=== PATIENT | female | born 1975 | race Caucasian/White ===

== ENCOUNTER 2022-01-16 10:54 | Outpatient (CLI) | payer BC, SELFPAY ==
[2022-01-16 21:47] LABS: Albumin* 4.7 g/dL (3.3-5.0); Chloride* 102 mmol/L (96-114)
[2022-01-16 21:48] LABS: Potassium* 4.3 mmol/L (3.6-5.1); Sodium* 137 mmol/L (135-149)
[2022-01-16 21:50] LABS: Alkaline Phosphatase* 64 U/L (40-150); Aspartate Amino Transferase* 28 U/L (12-35); Bilirubin Total* 0.5 mg/dL (0.1-1.5); Blood Urea Nitrogen* 13 mg/dL (5-24); Carbon Dioxide* 25 mmol/L (20-32); Cholesterol* 185 mg/dL (90-199); Creatinine* 0.6 mg/dL (0.5-1.5); Estimated Glomerular Filt Rate 112 ml/min; Glucose* 94 mg/dL (60-115); Total Protein* 7.4 g/dL (6.0-8.3)
[2022-01-16 21:51] LABS: Alanine Aminotransferase* 19 U/L (4-35); Calcium* 9.7 mg/dL (8.4-10.6); HDL Cholesterol* 66 mg/dL (>=50); LDL Cholesterol Calculated 99 mg/dL (<100); Triglycerides* 99 mg/dL (40-149)
== END 2022-01-16 10:55 | disposition home or self-care (01) ==
PROVIDERS: PCP Physician Assistant Medical; Visit Provider Physician Assistant Medical
DX: Z01.419 Encounter for gynecological examination (general) (routine) without abnormal findings (principal); G43.909 Migraine, unspecified, not intractable, without status migrainosus; Z13.6 Encounter for screening for cardiovascular disorders; Z13.29 Encounter for screening for other suspected endocrine disorder
CPT/HCPCS: 80053; 80061; 84443

== ENCOUNTER 2022-02-06 11:05 | Outpatient (CLI) | payer BC, SELFPAY ==
--- NOTE | 2022-02-06 12:10 | W.ANESCHARGE ---
Anesthesia Charges Start Date/Time Anesthesia Start Date: 02/06/22 Anesthesia Start Time: 11:40 Stop Date/Time Anesthesia Stop Date: 02/06/22 Anesthesia Stop Time: 12:05 Summary Emergency: No
== END 2022-02-06 11:06 | disposition home or self-care (01) ==
LOC: OP CLINIC 11:07
PROVIDERS: PCP Physician Assistant Medical; Visit Provider Internal Medicine
DX: Z12.11 Encounter for screening for malignant neoplasm of colon (principal)
CPT/HCPCS: 00812; 45378; J2704

== ENCOUNTER 2022-03-25 09:18 | Outpatient (CLI) | payer BC, SELFPAY ==
--- NOTE | 2022-03-25 09:15 | CRLHL7_ITS ---
For Patients: As a result of the Century Cures Act, medical imaging exams and procedure reports are released immediately into your electronic medical record. You may view this report before your referring provider. If you have questions, please contact your health care provider. BILATERAL SCREENING MAMMOGRAM WITH COMPUTER-AIDED DETECTION AND TOMOSYNTHESIS TECHNIQUE: CC and MLO views were obtained. These mammographic images have been obtained using full-field digital technique. These mammographic images were interpreted with the benefit of computer-aided detection. Breast Tomosynthesis was used in this interpretation. COMPARISON FILM: 09/26/20, 12/11/16. FINDINGS: The breasts are heterogeneously dense, which may obscure small masses IMPRESSION: There is no radiographic evidence for malignancy. ASSESSMENT: BI-RADS Category 1: Negative RECOMMENDATION: Routine screening mammogram in 1 year. A lay language report of this examination will be provided to the patient. Harry Canales M.D. Diagnostic Radiologist [email or web address] Transcribed: 4:03 pm DW/Dictated by: Harry Canales MD @ 03/25/2022 12:11:00 PM (Electronically Signed)
== END 2022-03-25 09:19 | disposition home or self-care (01) ==
LOC: MAMMO 09:19
PROVIDERS: PCP Physician Assistant Medical; Visit Provider Physician Assistant Medical
DX: Z12.31 Encounter for screening mammogram for malignant neoplasm of breast (principal); R92.2 Inconclusive mammogram
CPT/HCPCS: 77063; 77067

== ENCOUNTER 2022-12-30 10:32 | Outpatient (CLI) | payer BC, SELFPAY | END 2022-12-30 10:33 | disposition home or self-care (01) | PROVIDERS: PCP Physician Assistant Medical; Visit Provider Physician Assistant Medical | DX: Z00.00 Encounter for general adult medical examination without abnormal findings (principal); G43.909 Migraine, unspecified, not intractable, without status migrainosus; Z13.6 Encounter for screening for cardiovascular disorders; Z13.29 Encounter for screening for other suspected endocrine disorder | CPT/HCPCS: 80053; 80061; 84443 ==

== ENCOUNTER 2023-01-11 14:14 | Outpatient (CLI) | payer BC, SELFPAY ==
--- NOTE | 2023-01-11 14:00 | CRLHL7_ITS ---
For Patients: As a result of the Century Cures Act, medical imaging exams and procedure reports are released immediately into your electronic medical record. You may view this report before your referring provider. If you have questions, please contact your health care provider. BILATERAL SCREENING MAMMOGRAM WITH COMPUTER-AIDED DETECTION AND TOMOSYNTHESIS TECHNIQUE: CC and MLO views were obtained. These mammographic images have been obtained using full-field digital technique. These mammographic images were interpreted with the benefit of computer-aided detection. Breast Tomosynthesis was used in this interpretation. COMPARISON FILM: 03/25/22, 09/26/20. FINDINGS: The breasts are extremely dense, which lowers the sensitivity of mammography IMPRESSION: There is no radiographic evidence for malignancy. ASSESSMENT: BI-RADS Category 1: Negative RECOMMENDATION: Routine screening mammogram in 1 year. A lay language report of this examination will be provided to the patient. Harry Canales M.D. Diagnostic Radiologist [email or web address] MEHUL/Dictated by: Harry Canales MD @ 01/12/2023 12:15:00 PM (Electronically Signed)
--- OUTSIDE RECORDS SUMMARY | 2023-01-11 14:17 | XMS_ITS | Patient Health Record ---
Author Name Unknown Organization [facility] Address [address] [place] [id number] Care Team Providers Care Ophthalmic Medical Technologist Name Role Phone None, No PCP Primary Care Provider UnavailTj Victoria Unavailable [phone] Petros Carranza Unavailable [phone] OdellNatalya Unavailable [phone] ALLERGIES No Known Allergies RESULTS Component Value Reference Range Notes ESTRADIOL Reviewed date:08/26/2022 08:24:07 AM Interpretation: Performing Lab:DAMARIS GPal-[employer] [address], mywavesUwwlDS[address] Raghu Palmer Notes/Report: ESTRADIOL 100 Reference Range Follicular Phase: 19-144 Mid-Cycle: 64-357 Luteal Phase: 56-214 Postmenopausal: < or = 31 Reference range established on post-pubertal patient population. No pre-pubertal reference range established using this assay. For any patients for whom low Estradiol levels are anticipated (e.g. males, pre-pubertal children and hypogonadal/post-menopausal females), the [facility]al [facility] Estradiol, Ultrasensitive, LCMSMS assay is recommended (order code 12073). Please note: patients being treated with the drug fulvestrant (Faslodex(R)) have demonstrated significant interference in immunoassay methods for estradiol measurement. The cross reactivity could lead to falsely elevated estradiol test results leading to an inappropriate clinical assessment of estrogen status. GPal order code [id number]-[id number], Ultrasensitive LC/MS/MS demonstrates negligible cross reactivity with fulvestrant. DHEA SULFATE Reviewed date:08/26/2022 08:24:07 AM Interpretation: Performing Lab:DAMARIS [facility]-[employer] [address], [place] CarreroIezrAE[address] Raghu Palmer Notes/Report: DHEA SULFATE 151 15-205 mcg/dL DHEA-S values fall with advancing age. For reference, the reference intervals for 31-40 year old patients are: Male: 93-415 mcg/dL Female: 19-237 mcg/dL FSH Reviewed date:08/26/2022 08:24:07 AM Interpretation: Performing Lab:DAMARIS GPal-[place] [address], [place] CarreroAilqWS[address] Raghu Palmer Notes/Report: FSH 10.4 Reference Range Follicular Phase 2.5-10.2 Mid-cycle Peak 3.1-17.7 Luteal Phase 1.5- 9.1 Postmenopausal 23.0-116.3 LH Reviewed date:08/26/2022 08:24:08 AM Interpretation: Performing Lab:Mehran [facility] [employer] Hub[facility]key [address], [place] CarreroDzroYK[address] Raghu Palmer Notes/Report: LH 6.5 Reference Range Follicular Phase 1.9-12.5 Mid-Cycle Peak 8.7-76.3 Luteal Phase 0.5-16.9 Postmenopausal 10.0-54.7 PROLACTIN Reviewed date:08/26/2022 08:24:08 AM Interpretation: Performing Lab:Mehran OC[facility] [employer] HubMikey [address], [place] CarreroSspuBH[address] Raghu Palmer Notes/Report: PROLACTIN 7.9 Reference Range Females Non- 3.0-30.0 10.0-209.0 Postmenopausal 2.0-20.0 CORTISOL, TOTAL Reviewed date:08/26/2022 08:24:08 AM Interpretation: Performing Lab:DAMARIS GPalThaiBlue Mount Technologies [address], [place] TuzwPB[address] Raghu Palmer Notes/Report: CORTISOL, TOTAL 9.8 Reference Range: For 8 a.m.(7-9 a.m.) Specimen: 4.0-22.0 Reference Range: For 4 p.m.(3-5 p.m.) Specimen: 3.0-17.0 * Please interpret above results accordingly * TSH Reviewed date:08/26/2022 08:24:08 AM Interpretation: Performing Lab:DAMARIS [facility] [address], [place] MferBK[address] Raghu Palmer Notes/Report: TSH 1.80 Reference Range > or = 20 Years 0.40-4.50 Ranges First trimester 0.26-2.66 Second trimester 0.55-2.73 Third trimester 0.43-2.91 SEX HORMONE BINDING GLOBULIN Reviewed date:08/26/2022 08:24:08 AM Interpretation: Performing Lab:CB, [facility]-[place] [address] [place] LbxjYU[address] Raghu Palmer Notes/Report: SEX HORMONE BINDING GLOBULIN 144 17-124 nmol/ L TESTOSTERONE, TOTAL, LC/MS/M S Reviewed date:09/03/2022 01:39:48 PM Interpretation: Performing Lab:Z3E, Thar [facility]-[address] [address], [address] HospitalHvpjavtfvhVH[address] Franklin Arevalo MD Notes/Report: TESTOSTERONE, TOTAL, MS 20 2-45 ng/dL For additional information, please refer to https://[email or web address].GottaPark/faq/TotalTestosteroneLC MSMS (This link is being provided for informational/educational purposes only.) (Note) This test was developed and its analytical performance characteristics have been determined by [employer]. It has not been cleared or approved by the FDA. This assay has been validated pursuant to the CLIA regulations and is used for clinical purposes. [facility] [address] [address],[address] [facility] [address] Franklin Arevalo MD TESTOSTERONE, FREE Reviewed date:09/03/2022 01:39:48 PM Interpretation: Performing Lab:Z3E, Thar [facility]F[facility]-HcfQoaqzg[address] [address], [address] HospitalTdvnrbfrejJW[address] Franklin Arevalo MD Notes/Report: TESTOSTERONE, FREE 0.6 0.2-5.0 pg/mL (Note) The concentration of free testosterone is derived from a mathematical model using total testosterone by LCMSMS, sex hormone binding globulin and albumin. This test was developed and its analytical performance characteristics have been determined by [facility]. It has not been cleared or approved by the FDA. This assay has been validated pursuant to the CLIA regulations and is used for clinical purposes. [facility] [address] [address],[address] [facility] [address] Franklin Arevalo MD Test, Urine Reviewed date:09/03/2022 09:39:02 AM Interpretation:Negative Performing Lab: Notes/Report: Negative Test, Urine Negative Negative - ESTRADIOL Reviewed date:10/05/2022 09:57:28 AM Interpretation: Performing Lab:DAMARIS GPal-[place] [address] [facility] HospitalWisamHwwiPC[address] Raghu Palmer Notes/Report: 0; 0; 0 ESTRADIOL 35 Reference Range Follicular Phase: 19-144 Mid-Cycle: 64-357 Luteal Phase: 56-214 Postmenopausal: < or = 31 Reference range established on post-pubertal patient population. No pre-pubertal reference range established using this assay. For any patients for whom low Estradiol levels are anticipated (e.g. males, pre-pubertal children and hypogonadal/post-menopausal females), the GPal [facility] Estradiol, Ultrasensitive, LCMSMS assay is recommended (order code 10390). Please note: patients being treated with the drug fulvestrant (Faslodex(R)) have demonstrated significant interference in immunoassay methods for estradiol measurement. The cross reactivity could lead to falsely elevated estradiol test results leading to an inappropriate clinical assessment of estrogen status. GPal order code [id number]-[id number], Ultrasensitive LC/MS/MS demonstrates negligible cross reactivity with fulvestrant. FSH Reviewed date:10/05/2022 09:57:28 AM Interpretation: Performing Lab:DAMARIS GPal-[place] [address] LdWisam carBzmoTO[address] Raghu Palmer Notes/Report: 0; 0; 0 FSH 35.9 Reference Range Follicular Phase 2.5-10.2 Mid-cycle Peak 3.1-17.7 Luteal Phase 1.5- 9.1 Postmenopausal 23.0-116.3 TESTOSTERONE, TOTAL, LC/MS/M S Reviewed date:10/05/2022 09:57:28 AM Interpretation: Performing Lab:Z3E, MedF[facility] [address], [address] HospitalArkrgxdzymEM[address] Franklin Arevalo MD Notes/Report: 0; 0; 0 TESTOSTERONE, TOTAL, MS 329 2-45 ng/dL For additional information, please refer to https://education.CyberX.GottaPark/faq/TotalTestosteroneLC MSMS (This link is being provided for informational/educational purposes only.) (Note) This test was developed and its analytical performance characteristics have been determined by [employer]. It has not been cleared or approved by the FDA. This assay has been validated pursuant to the CLIA regulations and is used for clinical purposes. [facility] med fusion [address] [address],[address] [facility] [address] Franklin Arevalo MD ESTRADIOL Reviewed date:12/02/2022 07:40:57 PM Interpretation: Performing Lab:DAMARIS GPal-[employer] [address] [employer], [place] MobileEdxrNR[address] Raghu Palmer Notes/Report: 0; 0; 0 ESTRADIOL 80 Reference Range Follicular Phase: 19-144 Mid-Cycle: 64-357 Luteal Phase: 56-214 Postmenopausal: < or = 31 Reference range established on post-pubertal patient population. No pre-pubertal reference range established using this assay. For any patients for whom low Estradiol levels are anticipated (e.g. males, pre-pubertal children and hypogonadal/post-menopausal females), the GPal [facility] Estradiol, Ultrasensitive, LCMSMS assay is recommended (order code 79029). Please note: patients being treated with the drug fulvestrant (Faslodex(R)) have demonstrated significant interference in immunoassay methods for estradiol measurement. The cross reactivity could lead to falsely elevated estradiol test results leading to an inappropriate clinical assessment of estrogen status. GPal order code [id number]-Zapwwlyxh, Ultrasensitive LC/MS/MS demonstrates negligible cross reactivity with fulvestrant. FSH Reviewed date:12/02/2022 07:40:57 PM Interpretation: Performing Lab:DAMARIS GPal-[place] [address], [place] QpzuFI[address] Raghu Palmer Notes/Report: 0; 0; 0 FSH 50.2 Reference Range Follicular Phase 2.5-10.2 Mid-cycle Peak 3.1-17.7 Luteal Phase 1.5- 9.1 Postmenopausal 23.0-116.3 TESTOSTERONE, TOTAL, LC/MS/M S Reviewed date:12/02/2022 07:40:57 PM Interpretation: Performing Lab:Z3E, MedFusion-PatJybnti[address] [facility] [address], [address], SfscwzacneTC[address] Augie Garay MD Notes/Report: 0; 0; 0 TESTOSTERONE, TOTAL, MS 167 2-45 ng/dL For additional information, please refer to https://education.CyberX.GottaPark/faq/TotalTestosteroneLC MSMS (This link is being provided for informational/educational purposes only.) (Note) This test was developed and its analytical performance characteristics have been determined by [employer]. It has not been cleared or approved by the FDA. This assay has been validated pursuant to the CLIA regulations and is used for clinical purposes. [facility] med fusion [address] [facility] [address] [facility] [address] Augie Garay MD ESTRADIOL Reviewed date:12/28/2022 08:51:13 AM Interpretation: Performing Lab:DAMARIS GPal-[employer] [address] [employer], [address] MobileGxvbGB[address] Raghu Palmer Notes/Report: 0; 0; 0 ESTRADIOL 123 Reference Range Follicular Phase: 19-144 Mid-Cycle: 64-357 Luteal Phase: 56-214 Postmenopausal: < or = 31 Reference range established on post-pubertal patient population. No pre-pubertal reference range established using this assay. For any patients for whom low Estradiol levels are anticipated (e.g. males, pre-pubertal children and hypogonadal/post-menopausal females), the GPal [facility] Estradiol, Ultrasensitive, LCMSMS assay is recommended (order code 35713). Please note: patients being treated with the drug fulvestrant (Faslodex(R)) have demonstrated significant interference in immunoassay methods for estradiol measurement. The cross reactivity could lead to falsely elevated estradiol test results leading to an inappropriate clinical assessment of estrogen status. GPal order code [id number]-[id number], Ultrasensitive LC/MS/MS demonstrates negligible cross reactivity with fulvestrant. FSH Reviewed date:12/28/2022 08:51:13 AM Interpretation: Performing Lab:DAMARIS [facility]-[employer] [address], [place] MobileGlcbNC[address] Raghu Palmer Notes/Report: 0; 0; 0 FSH 18.4 Reference Range Follicular Phase 2.5-10.2 Mid-cycle Peak 3.1-17.7 Luteal Phase 1.5- 9.1 Postmenopausal 23.0-116.3 TESTOSTERONE, TOTAL, LC/MS/M S Reviewed date:12/28/2022 08:51:13 AM Interpretation: Performing Lab:Rosalba MedFusion[address] [address], [address], ThxfcgmfbjTI[address] Augie Garay MD Notes/Report: 0; 0; 0 TESTOSTERONE, TOTAL, MS 115 2-45 ng/dL For additional information, please refer to https://education.rankdesk/faq/TotalTestosteroneLC MSMS (This link is being provided for informational/educational purposes only.) (Note) This test was developed and its analytical performance characteristics have been determined by [employer]. It has not been cleared or approved by the FDA. This assay has been validated pursuant to the CLIA regulations and is used for clinical purposes. [facility] med fusion [address] [address],[address] [facility] [address] Augie Garay MD Test, Urine Reviewed date:12/29/2022 09:19:29 AM Interpretation: Performing Lab: Notes/Report: Test, Urine Negative Negative - REASON FOR REFERRAL No Information MEDICATIONS Medication SIG (Take, Route, Frequency, Duration) Notes Start Date End Date Status Estradiol 0.025 MG/24HR 1 patch to skin Transdermal Active Rizatriptan Benzoate 5 MG 1 tablet Orally Once a day Active Paragard Intrauterine Copper - as directed Intrauterine inserted 2021 Active Progesterone 100 MG TAKE 1 TAB BY MOUTH EVERY EVENING for 90 Active Tretinoin 0.025 % 1 application in the evening to face Externally Once a day Active Estrogen Pellets Act attila Testosterone Pellets Active SOCIAL HISTORY Tobacco Use: Social History Observation Description Date Details (start date - stop date) Never Smoker NA - NA Sex Assigned At : Social History Observation Description Sex Assigned At Unknown Tobacco Use/Smoking Question Answer Notes Are you a nonsmoker Alcohol Screen (Audit-C) Question Answer Notes Did you have a drink containing alcohol in the p ast year? No Points 0 Interpretation Negative PROBLEMS Problem Type ICD Code Onset Dates Problem Status W/U Status Risk SNOMED Code Notes Problem Menopausal and female climacteric states (N95.1) Active confirmed Menopause (934601982) Problem Unspecified menopausal and perimenopausal disorder (N95.9) Active confirmed Menopausal and postmenopausal disorders (346242381) Problem Menopausal and perimenopausal disorder (N95.9) Active confirmed Menopausal and postmenopausal disorders (170103421) Problem Climacteric (N95.1) Active confirmed Menopause (974199750) VITAL SIGNS Blood pressure diastolic 62 mm Hg 12/29/2022 Height 64 in 12/29/2022 Blood pressure systolic 102 mm Hg 12/29/2022 Weight 116.2 lbs 12/29/2022 BMI 19.94 kg/m2 12/29/2022 Encounters Encounter Location Date Provider Diagnosis [address] [address] 09/04/[address] [address] 11/30/2022 [facility] [address] [place] [address] 09/29/2022 [facility] Climacteric N95.1 [facility] [address] [place] [address] 11/24/2022 [facility] Climacteric N95.1 [facility] [address] [place] [address] 12/21/2022 [facility] Menopausal and femal e climacteric states N95.1 [facility] [address] [place] [address] 08/25/2022 [facility] Menopausal and femal e climacteric states N95.1 [facility] [address] [place] [address] 12/01/2022 [facility] [address] [place] [address] 09/03/2022 [facility] Encounter for pre-operative laboratory testing Z01.812 and Unspecified menopausal and perimenopausal disorder N95.9 [facility] [address] [place] [address] 12/29/2022 Petros Carranza Unspecified menopaus al and perimenopausal disorder N95.9 and Pre-procedural examination Z01.818 [facility] [address] [place] [address] 10/28/2022 [facility] Menopausal and perimenopausal disorder N95.9 [facility] [address] [place] [address] 10/15/2022 [facility] [address] [place] [address] 09/01/2022 [facility] Menopausal and perimenopausal disorder N95.9 [facility] [address] [place] [address] 08/25/2022 [facility] Female climacteric state N95.1 [facility] [address] [place] [address] 08/25/2022 [facility] ASSESSMENTS Encounter Date Diagnosis Assessment Notes Treatment Notes Treatment Clinical Notes 08/25/2022 Female climacteric state (ICD-10 - N95.1) 09/01/2022 Menopausal and perimenopausal disorder (ICD-10 - N95.9) Detailed discussion with patient to explain all lab results. Discussed all options for HRT that are available to the patient as well as reviewed the risks and benefits. Reviewed next steps with patient if she would like to move forward with HRT. She states that she is scheduled for a pellet insertion on 09/03/2022. All questions were answered. This visit was conducted with the use of audio and video telecommunications system that permits real time communication between the patient and provider. Patient consent for virtual visit was obtained. Originating Site: [facility] Distant Site: patient home Start Time: 08 End Time: 0850 Time spent on patient care included, review of previous records, preparation for visit, ordering medications, ordering/reviewing labs, ordering/reviewing imaging, documenting visit, direct face to face time with patient to obtain relevant history, physical exam and discussion of plan of care. Total time was 25 minutes. 09/03/2022 Encounter for pre-operative laboratory testing (ICD-10 - Z01.812) 10/28/2022 Menopausal and perimenopausal disorder (ICD-10 - N95.9) Detailed discussion with patient. Reviewed most recent lab results and discussed symptoms in detail as well as anticipatory guidance. Will plan to increase estrogen dose with next pellet insertion. Will plan for repeat labs the week of 11/23/2022 and a pellet insertion the week of 11/30/2022. Patient verbalizes agreement to the plan of care. Questions answered. This visit was conducted with the use of audio and video telecommunications system that permits real time communication between the patient and provider. Patient consent for virtual visit was obtained. Originating Site: [facility] Distant Site: patient home Start Time: 1010 End Time: 1025. Time spent on patient care included, review of previous records, preparation for visit, ordering/reviewing labs, documenting visit, direct face to face time with patient to obtain relevant history, and discussion of plan of care. Total time was 25 minutes. 12/21/2022 Menopausal and female climacteric states (ICD-10 - N95.1) 12/29/2022 Unspecified menopausal and perimenopausal disorder (ICD-10 - N95.9) Hormone pellets inserted today per patient desires and medical recommendation. After care and follow up instructions were reviewed with patient in great detail. Patient states that all questions have been answered to her satisfaction. 12/29/2022 Pre-procedural examination (ICD-10 - Z01.818) 11/24/2022 Climacteric (ICD-10 - N95.1) 09/29/2022 Climacteric (ICD-10 - N95.1) 09/03/2022 Unspecified menopausal and perimenopausal disorder (ICD-10 - N95.9) Hormone pellets inserted today per patient desires and medical recommendation. After care and follow up instructions were reviewed with patient in great detail. Patient states that all questions have been answered to her satisfaction. 08/25/2022 Menopausal and female climacteric states (ICD-10 - N95.1) 08/25/2022 Other Mammogram current Method of contraception: Paraguard IUD Discussed that she has uterus and will need oral progesterone if she proceeds with hormone therapy with estrogen Discussed HRT risks/benefits, and reviewed patient education and informed consent in HRT packet. Discused potenial side effects of fluid retention, swelling, breast tenderness, nipple sensitivity, uterine spotting, mood swings and irritability, acne, hair loss and hair growth. Labs drawn. Patient verbalizes understanding to plan of care. Time spent on patient care included, review of previous records, preparation for visit, ordering labs, documenting visit, direct face to face time with patient to obtain relevant history, and discussion of plan of care. Total time was 45 minutes. 09/03/2022 Other Ice pack x20min, 5 times today Follow up: labs in 4 weeks, follow up televisit one week after labs 12/29/2022 Other Next insert 3 mos PLAN OF TREATMENT Next Appt Details Provider Name:Natalya Washingt on, 03/22/2023 09:45:00 AM, [address] [place], [address], Provider Name:Natalya Washingt on, 03/30/2023 10:00:00 AM, [address] [place], [address], Insurance Providers Payer Name Payer Address Payer Phone Subscriber Number Group Number Insured Name Patient Relationship to Insured Coverage Start Date Coverage End Date BC [address] [address] [place], [place] [id number] Brigida Francois Self - patient is the insured MEDICAL (GENERAL) HISTORY Medical History History ICD Code Migraines Basal Cell Carcinoma Surgical History Surgery Date(Month/Year) section x 2 Hospitalization History Reason Date(Month/Year) child
== END 2023-01-11 14:15 | disposition home or self-care (01) ==
LOC: MAMMO 14:15
PROVIDERS: PCP Physician Assistant Medical; Visit Provider Physician Assistant Medical
DX: Z12.31 Encounter for screening mammogram for malignant neoplasm of breast (principal); R92.2 Inconclusive mammogram
CPT/HCPCS: 77063; 77067

== ENCOUNTER 2024-01-14 11:10 | Outpatient (CLI) | payer BC, SELFPAY ==
--- OUTSIDE RECORDS SUMMARY | 2024-01-14 11:12 | XMS_ITS | Patient Health Record ---
Author Organization [facility] Address [address] [place] [address] Care Team Providers Care Scanning Manager Name Role Phone None, No PCP Primary Care Provider Unavailusha SweetTj Unavailable [phone] Natalya Odell Unavailable [phone] Sami Card Unavailable [phone] Petros Crawford Unavailable [phone] Allergies No Known Allergies Results Component Value Reference Range Notes TESTOSTERONE, TOTAL, LC/MS/M S Reviewed date:08/09/2023 01:07:05 PM Interpretation: Performing Lab:[facility] [place] [address], [address] CenterYiibvonuwxWM[address] Tru Flores MD,PhD Notes/Report: 0; 0; 0 TESTOSTERONE, TOTAL, MS 150 2-45 ng/dL For additional information, please refer to https://education.[employer] [place] - 2.com/faq/TotalTestosteroneLC MSMS (This link is being provided for informational/educational purposes only.) (Note) This test was developed and its analytical performance characteristics have been determined by [facility]. It has not been cleared or approved by the FDA. This assay has been validated pursuant to the CLIA regulations and is used for clinical purposes. [facility] [address] [facility] [address] [facility] [address] Tru Flores MD, PhD FSH Reviewed date:08/09/2023 01:07:05 PM Interpretation: Performing Lab:[facility] carSmlrPM[address] Raghu Palmer Notes/Report: 0; 0; 0 FSH 8.4 Reference Range Follicular Phase 2.5-10.2 Mid-cycle Peak 3.1-17.7 Luteal Phase 1.5- 9.1 Postmenopausal 23.0-116.3 ESTRADIOL Reviewed date:08/09/2023 01:07:05 PM Interpretation: Performing Lab:[facility] [address]vbzYL[address] Raghu Palmer Notes/Report: 0; 0; 0 ESTRADIOL 280 Follicular Phase: 19-144 Mid-Cycle: 64-357 Luteal Phase: 56-214 Postmenopausal: < or = 31 Reference range established on post-pubertal patient population. No pre-pubertal reference range established using this assay. For any patients for whom low Estradiol levels are anticipated (e.g. males, pre-pubertal children and hypogonadal/post-menopausal females), the [facility] Estradiol, Ultrasensitive, LCMSMS assay is recommended (order code 48513). Please note: patients being treated with the drug fulvestrant (Faslodex(R)) have demonstrated significant interference in immunoassay methods for estradiol measurement. The cross reactivity could lead to falsely elevated estradiol test results leading to an inappropriate clinical assessment of estrogen status. Taste Filter order code [id number], Ultrasensitive LC/MS/MS demonstrates negligible cross reactivity with fulvestrant. Reference Range TESTOSTERONE, TOTAL, LC/MS/M S Reviewed date:06/29/2023 12:22:45 PM Interpretation: Performing Lab:[facility] [place] [address], [address] CenterAnldisjeljQH[address] Tru Flores MD Notes/Report: 0; 0; 0 TESTOSTERONE, TOTAL, MS 136 2-45 ng/dL For additional information, please refer to https://education.[employer] [place] - 2.com/faq/TotalTestosteroneLC MSMS (This link is being provided for informational/educational purposes only.) (Note) This test was developed and its analytical performance characteristics have been determined by [facility]. It has not been cleared or approved by the FDA. This assay has been validated pursuant to the CLIA regulations and is used for clinical purposes. [facility] [address] [facility] [address] [facility] [address] Augie Garay MD FSH Reviewed date:06/29/2023 12:22:45 PM Interpretation: Performing Lab:[facility] [address], [place] CarreroNiwyUH[address] Raghu Palmer Notes/Report: 0; 0; 0 FSH 113.2 Follicular Phase 2.5-10.2 Mid-cycle Peak 3.1-17.7 Luteal Phase 1.5- 9.1 Postmenopausal 23.0-116.3 Reference Range ESTRADIOL Reviewed date:06/29/2023 12:22:45 PM Interpretation: Performing Lab:[facility] [address], Wis[place] CarreroCzixXG[address] Raghu Palmer Notes/Report: 0; 0; 0 ESTRADIOL 36 Reference Range Follicular Phase: 19-144 Mid-Cycle: 64-357 Luteal Phase: 56-214 Postmenopausal: < or = 31 Reference range established on post-pubertal patient population. No pre-pubertal reference range established using this assay. For any patients for whom low Estradiol levels are anticipated (e.g. males, pre-pubertal children and hypogonadal/post-menopausal females), the Taste Filter [facility] Estradiol, Ultrasensitive, LCMSMS assay is recommended (order code 11342). Please note: patients being treated with the drug fulvestrant (Faslodex(R)) have demonstrated significant interference in immunoassay methods for estradiol measurement. The cross reactivity could lead to falsely elevated estradiol test results leading to an inappropriate clinical assessment of estrogen status. Taste Filter order code [id number], Ultrasensitive LC/MS/MS demonstrates negligible cross reactivity with fulvestrant. Test, Urine Reviewed date:03/29/2023 08:14:51 AM Interpretation: Performing Lab: Notes/Report: Test, Urine Negative Negative - TESTOSTERONE, TOTAL, LC/MS/M S Reviewed date:07/06/2023 07:41:23 AM Interpretation: Performing Lab:[facility]-[address] [place] [address], [address], [place]peoCO[address] Augie Garay MD Notes/Report: 0; 0; 0 TESTOSTERONE, TOTAL, MS 114 2-45 ng/dL For additional information, please refer to https://education.[employer] [place] - 2.com/faq/TotalTestosteroneLC MSMS (This link is being provided for informational/educational purposes only.) (Note) This test was developed and its analytical performance characteristics have been determined by [facility]. It has not been cleared or approved by the FDA. This assay has been validated pursuant to the CLIA regulations and is used for clinical purposes. [facility] [address] [place] [address],[address] [facility] [address] Augie Garay MD FSH Reviewed date:07/06/2023 07:41:23 AM Interpretation: Performing Lab:[facility] [address], [place] UjpcUB[address] Raghu Palmer Notes/Report: 0; 0; 0 FSH 8.2 Reference Range Follicular Phase 2.5-10.2 Mid-cycle Peak 3.1-17.7 Luteal Phase 1.5- 9.1 Postmenopausal 23.0-116.3 ESTRADIOL Reviewed date:07/06/2023 07:41:23 AM Interpretation: Performing Lab:[facility] [address], BreadcrumbtrackingPpfcPK[address] Raghu Palmer Notes/Report: 0; 0; 0 ESTRADIOL 216 Reference Range Follicular Phase: 19-144 Mid-Cycle: 64-357 Luteal Phase: 56-214 Postmenopausal: < or = 31 Reference range established on post-pubertal patient population. No pre-pubertal reference range established using this assay. For any patients for whom low Estradiol levels are anticipated (e.g. males, pre-pubertal children and hypogonadal/post-menopausal females), the Taste Filter [facility] Estradiol, Ultrasensitive, LCMSMS assay is recommended (order code 11489). Please note: patients being treated with the drug fulvestrant (Faslodex(R)) have demonstrated significant interference in immunoassay methods for estradiol measurement. The cross reactivity could lead to falsely elevated estradiol test results leading to an inappropriate clinical assessment of estrogen status. Taste Filter order code [id number], Ultrasensitive LC/MS/MS demonstrates negligible cross reactivity with fulvestrant. Reason For Referral No Information Medications Medication SIG (Take, Route, Frequency, Duration) Notes Start Date End Date Status Minoxidil 1.25mg Active Progesterone 100 MG TAKE 1 TAB BY MOUTH EVERY EVENING 90 for 90 Active Tretinoin 0.025 % 1 application in the evening to face Externally Once a day Active Rizatriptan Benzoate 5 MG 1 tablet Orally Once a day Not-Taking Estrogen Pellets Act attila Paragard Intrauterine Copper - as directed Intrauterine inserted 2021 Active Testosterone Pellets Active Estradiol 0.025 MG/24HR Apply 1 patch topically to skin twice weekly for 90 days. for 84 please remind pt she is due mammogram and 6 mo follow up appt in Jan, thank you Active Social History Tobacco Use: Social History Observation Description Date Details (start date - stop date) Never Smoker NA - NA Tobacco Use/Smoking Question Answer Notes Are you a nonsmoker Alcohol Screen (Audit-C) Question Answer Notes Did you have a drink containing alcohol in the p ast year? No Points 0 Interpretation Negative Problems Problem Type SNOMED Code ICD Code Onset Dates Problem Status W/U Status Risk Notes Problem Menopause (090303050) Menopausal and female climacteric states (N95.1) Active confirmed Problem Unspecified menopausal and perimenopausal disorder (N95.9) Active confirmed Problem Menopausal and perimenopausal disorder (N95.9) Active confirmed Problem Menopause (087148606) Climacteric (N95.1) Active confirmed Vital Signs Blood pressure diastolic 70 mm Hg 07/02/2023 Height 64 in 07/02/2023 Blood pressure systolic 118 mm Hg 07/02/2023 Weight 116 lbs 07/02/2023 BMI 19.91 kg/m2 07/02/2023 Encounters Encounter Location Date Provider Diagnosis [facility] [address] [place] [address] 05/14/2023 Sami Card Unspecified menopaus al and perimenopausal disorder N95.9 [facility] [address] [place] [address] 03/29/2023 Petros Crawford Encounter for pre-operative laboratory testing Z01.812 and Menopausal and female climacteric states N95.1 [facility] [address] [place] [address] 07/02/2023 Petros Crawford Menopausal and femal e climacteric states N95.1 [facility] [address] [place] [address] 03/22/2023 [facility] Abnormal level of female sex hormones R87.1 [facility] [address] [facility] [place] [address] 06/25/2023 Petros Crawford Menopausal and femal e climacteric states N95.1 [facility] [address] [place] [address] 07/30/2023 Petros Bushjuliette Menopausal and femal e climacteric states N95.1 [facility] [address] [place] [address] 08/09/2023 Petros Bushjuliette Menopausal and femal e climacteric states N95.1 Assessments Encounter Date Diagnosis (ICD Code) Assessment Notes Treatment Notes Treatment Clinical Notes 03/22/2023 Abnormal level of female sex hormones (ICD-10 - R87.1) 03/29/2023 Menopausal and female climacteric states (ICD-10 - N95.1) 03/29/2023 Encounter for pre-operative laboratory testing (ICD-10 - Z01.812) 05/14/2023 Unspecified menopausal and perimenopausal disorder (ICD-10 - N95.9) History and symptoms reviewed. Hormone levels discussed with patient. Consider switching to creams/patches at her next appointment if patient desires. Patient to double progesterone dose in an attempt to help with sleep. 06/25/2023 Menopausal and female climacteric states (ICD-10 - N95.1) 07/02/2023 Menopausal and female climacteric states (ICD-10 - N95.1) Counseled on application of estradiol patches to clean dry skin. Can apply to lower abdomen, underwear line, or arms/shoulders. Avoid application to breast tissue. Cautioned on possible side effects of therapy including skin irritation, breast tenderness and vaginal bleeding in women with a uterus. Recommend replacement of new patch if patch falls off before replacement is due. -Counseled on need for progesterone therapy with the initiation of estradiol replacement in women who have a uterus for endometrial protection to reduce the risk for vaginal bleeding and developement of abnormalities of the uterine lining. We discussed the importance of consistent daily dosing and to avoid missing/skipping doses to avoid bleeding and endometrial thickening. Common side effects including drowsiness and mood changes (improved vs. worsening mood) discussed. No allergies/sensitivities to peanuts reported. Recommend taking therapy at bedtime to accommodate for common side effect of drowsiness. Already taking progesterone 100mg/day, opted to not increase to 200mg/day after last visit -Counseled on application of testosterone cream in AM or HS. Preferred application to labia, otherwise can apply to upper inner arm, forearm, inner thigh, or back of knee. Avoid contact with others to area cream was applied for at least 4 hours after application to prevent transmission of therapy to others. Wash hands after application and store cream is safe place from young children. Common side effects of localized hair growth, skin irritation, possible agitation/irritability can occur with initiation of therapy. If Agitation/irritability occur, I advise decreasing dose in half (1 click) or discontinue if symptoms are severe and notify clinic. Recommend rechecking testosterone level in 4 weeks with Televisit in 5 weeks for follow up. Sooner if any concerns before then. Pt. instructed to get labs drawn in AM/PM and to make sure cream has been applied the night before or day of labs to reflect dose of therapy she is using. -Transdermal compounded testosterone cream 5mg/0.5gm/2clicks/day 1 month supply with 1 refill faxed to [facility] 07/30/2023 Menopausal and female climacteric states (ICD-10 - N95.1) 08/09/2023 Menopausal and female climacteric states (ICD-10 - N95.1) 03/29/2023 Other -HRT pellet inserted as documented above without complication -Post-insertion instructions reviewed. Printed handout with instructions given along with ice pack. Repeat ice to insertion site for 20 min. 3-5 times a day PRN for soreness at insertion site -Report any signs of infection or pellet expulsion -Repeat labs in 3 months (E2, FSH, total testosterone) with next insertion 1 week later -Follow up as needed before next insertion if any concerns 07/02/2023 Other Estradiol replacement in bio-identical forms include: -Oral pills which are taken once daily -Transdermal patches which are applied twice weekly to lower abdomen, hip, upper buttocks, arm or shoulder. Patches should never be applied to breast tissue. Apply to clean dry skin and alternate sites every 3 days (twice weekly) -Estradiol pellets which are dosed in a dosing system and inserted every 3-4 months in the hip or gluteal region Progesterone replacement in bio-identical forms include: -Oral capsules mixed in peanut oil taken once daily at bedtime -Common side effects can be drowsiness which is why it is recommended to take right at bedtime -Indicated to protect thickening of lining of the uterus in women who have a uterus. It is very important that this is taken every night to avoid vaginal bleeding -Can be taken for side effect benefits in women who have had a hysterectomy Testosterone replacement in bio-identical forms include: -Transdermal compounded cream that is applied to the skin once daily. Can be applied to the back of each knee, inner thigh, or upper inner arm. Avoid placement on breast tissue. Therapy absorbs over a few hours after application so ideally is applied after bathing so it isn't washed off. Localized hair growth and skin irritation where cream is applied are the most common side effects. -Testosterone pellets which are dosed in a dosing system and inserted every 3-4 months in the hip or gluteal region 30 min. spent reviewing previous notes, lab results, alternaitve HRT therapies, answering questions/concerns, writing orders, sending prescriptions, along with time spent documenting today's visit note. 08/09/2023 Other This visit was conducted with the use of audio and video telecommunications system that permits real time communication between the patient and provider. Patient consent for virtual visit was obtained. Originating site: [facility] location Distant site: pt home Start time: 1358 Stop time:1408 HRT labs reviewed. High elevated estradiol likely attibuting to breast tenderness and bloating, with plan to decrease dosing. Desires higher testosterone dosing to help with libido. Denies agitation, irritability, or negative side effects since increasing dose on her own Desires to continue on current therapies at this time with the following dose adjustments: Decreased Estradiol patches to 0.025mg/24hr twice weekly Continue Progesterone 100mg PO caps daily for endometrial protection, may increase to 200mg/day if abnromal bleeding. Still getting periods irregularly/infrequentl y Transdermal compounded testosterone cream 7.5mg/0.s5gm/1click/day 3 month supply with 1 refill faxed to [facility] Risks vs. benefits of ongoing HRT reviewed today. Contraindications to continue therapy reviewed including breast cancer, VTE, CVA, and/or GA. Mammogram adue in 01/2024, reviewed [facility] [place] policy Plan repeat labs (estradiol, FSH, total testosterone) and HRT follow up in 6 months, sooner if any concerns. 20 min. spent reviewing previous notes, lab results, current HRT therapies, answering questions/concerns, and discussing ongiong therapy options, writing orders, sending prescriptions, along with time spent documenting today's visit note. Plan Of Treatment Next Appt Details Provider Name:Petros Crawford, 02/01/2024 10:00:00 AM, [address] [place], [address], Provider Name:Petros Crawford, 02/10/2024 11:15:00 AM, [address] [place], [address], Insurance Providers Payer Name Payer Address Payer Phone Subscriber Number Group Number Insured Name Patient Relationship to Insured Coverage Start Date Coverage End Date [employer] - (Client Bill) [address] [place] [address] [id number] Brigida Francois Self - patient is the insured Medical (General) History Medical History History ICD Code Migraines Basal Cell Carcinoma Surgical History Surgery Date(Month/Year) section x 2 Hospitalization History Reason Date(Month/Year) child
--- NOTE | 2024-01-14 11:30 | CRLHL7_ITS ---
For Patients: As a result of the Century Cures Act, medical imaging exams and procedure reports are released immediately into your electronic medical record. You may view this report before your referring provider. If you have questions, please contact your health care provider. BILATERAL SCREENING MAMMOGRAM WITH COMPUTER-AIDED DETECTION AND TOMOSYNTHESIS TECHNIQUE: CC and MLO views were obtained. These mammographic images have been obtained using full-field digital technique. These mammographic images were interpreted with the benefit of computer-aided detection. Breast tomosynthesis was used in this interpretation. COMPARISON FILM: 01/11/2023, 03/25/2022, 09/26/2020. FINDINGS: The breasts are heterogeneously dense, which may obscure small masses. IMPRESSION: There is no radiographic evidence for malignancy. ASSESSMENT: BI-RADS Category 1: Negative RECOMMENDATION: Routine screening mammogram in 1 year. A lay language report of this examination will be provided to the patient. HARRY PEMBERTON M.D. Diagnostic Radiologist [email or web address] Transcribed: 12:[address]/Dictated by: Harry Pemberton MD @ 01/17/2024 10:33:00 AM (Electronically Signed)
== END 2024-01-14 11:11 | disposition home or self-care (01) ==
LOC: MAMMO 11:10
PROVIDERS: PCP Physician Assistant Medical; Visit Provider Nurse Practitioner
DX: Z12.31 Encounter for screening mammogram for malignant neoplasm of breast (principal); R92.333 Mammographic heterogeneous density, bilateral breasts
CPT/HCPCS: 77063; 77067

== ENCOUNTER 2025-01-15 11:14 | Outpatient (CLI) | payer BC, SELFPAY ==
--- NOTE | 2025-01-15 11:30 | CRLHL7_ITS ---
For Patients: As a result of the Century Cures Act, medical imaging exams and procedure reports are released immediately into your electronic medical record. You may view this report before your referring provider. If you have questions, please contact your health care provider. INDICATION: BILATERAL SCREENING MAMMOGRAM, ASYMPTOMATIC 49 Y/O FEMALE COMPARISON: 01/14/2024, 01/11/2023, 03/25/2022 TECHNIQUE: Digital mammogram in CC and MLO projections including computer-aided detection (CAD) and tomosynthesis. BREAST COMPOSITION: The breasts are heterogeneously dense, which may obscure small masses. FINDINGS: No suspicious findings. ASSESSMENT: BI-RADS 1 Negative RECOMMENDATION: Annual screening mammogram. A lay language report of this examination will be provided to the patient. Dictated by: Harry Canales MD @ 01/16/2025 09:41:28 (Electronically Signed)
== END 2025-01-15 11:15 | disposition home or self-care (01) ==
LOC: MAMMO 11:14
PROVIDERS: PCP Physician Assistant Medical; Visit Provider Nurse Practitioner
DX: Z12.31 Encounter for screening mammogram for malignant neoplasm of breast (principal); R92.333 Mammographic heterogeneous density, bilateral breasts
CPT/HCPCS: 77063; 77067